=== PATIENT | female | born 1970 | race Caucasian/White ===

== ENCOUNTER 2016-03-19 03:20 | Emergency (ER) | payer OTHER ==
[~2016-03-19] VITALS: Ht 170.2 cm; Wt 90.7 kg
[~2016-03-19 03:20] MED LIST: CYCLOBENZAPRINE10 M1 PO; MEDROL4 M2 PO; NORCO 5-325 TA1 EACH PO
--- NOTE | 2016-03-19 03:25 | ED GI/GU/ABDOMINAL COMPLAINT ---
History of Present Illness General Chief Complaint: Abdominal Pain/Flank Pain Stated Complaint: "HORRIBLE PAIN" LEFT SIDE ABDOMINAL PAIN Source: patient Exam Limitations: no limitations Vital Signs & Intake/Output Vital Signs & Intake/Output Vital Signs Date Time Temp Pulse Resp B/P Pulse O2 O2 Flow FiO2 Ox Delivery Rate 03/19 0459 98.3 75 18 117/64 96 Room Air 03/19 0329 100.0 82 20 126/57 99 Room Air Allergies Coded Allergies: Penicillins (Intermediate, SWELLING 10/12/15) Sulfa (Sulfonamide Antibiotics) (Intermediate, SWELLING 10/12/15) Reconcile Medications Cyclobenzaprine HCl 10 MG TABLET 1 TAB PO BID PAIN Fexofenadine HCl (Sera Allergy) 180 MG TABLET 1 TAB PO DAILY ALLERGIES ( Reported) Hydrocodone/Acetaminophen ([place] 5-325 Tablet) 1 EACH TABLET 1 TAB PO Q4-6 PRN PRN BREAKTHROUGH PAIN Methylprednisolone. (Medrol) 4 MG TAB.DS.PK 1 DP PO AD back pain 6 on day 1 then reduce by one tablet daily until gone Triage Nurses Notes Reviewed? yes ? n Is pt currently ? No Duration: hour(s):, waxing and waning Timing: recent history Quality/Severity: cramping Location: left lower quadrant Radiation: no radiation Activities at Onset: none Prior Abdominal Problems: similar symptoms Modifying Factors: Worsens With: urinating. Associated Symptoms: abdominal pain, nausea/vomiting HPI: 45 yo woman h/o gastric sleeve, cholecystectomy, hysterectomy, appendectomy, presents with left lower quadrant abdominal pain x 2 hours. "I woke up, felt a little nauseous, felt like I had to go to the bathroom (both urinate and defecate)." Past History Travel History Traveled to [place] past 21 day No Medical History Any Pertinent Medical History? see below for history Neurological: NONE EENT: NONE Cardiovascular: NONE Respiratory: NONE Gastrointestinal: NONE Hepatic: cholelithiasis Renal: nephrolithiasis Musculoskeletal: NONE Psychiatric: NONE Endocrine: NONE Blood Disorders: NONE Cancer(s): NONE ACADEMIC DIRECTOR/Reproductive: NONE Surgical History Surgical History: appendectomy, cholecystectomy, hysterectomy Psychosocial History What is your primary language [place] Family History Hx Contributory? No Review of Systems Review of Systems Constitutional: Reports: no symptoms. EENTM: Reports: no symptoms. Respiratory: Reports: no symptoms. Cardiovascular: Reports: no symptoms. GI: Reports: no symptoms. Genitourinary: Reports: no symptoms. Musculoskeletal: Reports: no symptoms. Skin: Reports: no symptoms. Neurological/Psychological: Reports: no symptoms. Hematologic/Endocrine: Reports: no symptoms. Immunologic/Allergic: Reports: no symptoms. All Other Systems: Reviewed and Negative Physical Exam Physical Exam General Appearance: well developed/nourished, mild distress Head: atraumatic, normal appearance Eyes: Bilateral: normal appearance. Ears, Nose, Throat, Mouth: hearing grossly normal Neck: normal inspection, supple, full range of motion, normal alignment, abnormal alignment Respiratory: normal breath sounds, chest non-tender, no respiratory distress, quiet respiration, lungs clear Cardiovascular: regular rate/rhythm Gastrointestinal: normal bowel sounds, soft, mild suprapubic, left lower quadrant tenderness to palpation. Extremities: normal range of motion Neurologic/Psych: no motor/sensory deficits, awake, alert, oriented x 3 Core Measures ACS in differential dx? No Severe Sepsis Present: No Septic Shock Present: No Progress Differential Diagnosis: uti, kidney stones, diverticulitis vs other. Plan of Care: Orders Procedure Date/time Status URINALYSIS 03/19 342 Complete LIPASE 03/19 322 Complete HEPATIC FUNCTION PANEL 03/19 322 Complete HUMAN BETA HCG SCREEN 03/19 322 Complete CBC WITHOUT DIFFERENTIAL 03/19 322 Complete BASIC METABOLIC PANEL 03/19 322 Complete AMYLASE 03/19 322 Complete Laboratory Tests 03/19/16 0340: Urine Color YEL, Urine Clarity CLEAR, Urine pH 5.5, Ur Specific [place] >= 1.030 , Urine Protein NEG, Urine Ketones NEG, Urine Nitrite NEG, Urine Bilirubin NEG, Urine Urobilinogen 0.2, Ur Leukocyte Esterase NEG, Ur Microscopic SEDIMENT EXAMINED, Urine RBC 3-5, Urine WBC RARE, Ur Epithelial Cells MOD H, Urine Mucus FEW, Urine Hemoglobin SMALL H, Urine Glucose NEG 03/19/16 0335: Anion Gap 14, Estimated GFR > 60, BUN/Creatinine Ratio 22.9, Glucose 104 H, Calcium 9.5, Total Bilirubin 0.7, Direct Bilirubin 0.3, AST 28, ALT 41, Alkaline Phosphatase 85, Total Protein 7.4, Albumin 4.2, Amylase 47, Lipase 184, Total Beta HCG NEGATIVE, CBC w Diff NO MAN DIFF REQ, RBC 4.61, MCV 91.0, MCH 30.8, RDW 13.0, MPV 8.4, Gran % 57.3, Lymphocytes % 31.8, Monocytes % 9.0, Eosinophils % 1.5, Basophils % 0.4, Absolute Granulocytes 5.4, Absolute Lymphocytes 3.0, Absolute Monocytes 0.9 H, Absolute Eosinophils 0.1, Absolute Basophils 0, PUBS MCHC 33.8 Diagnostic Imaging: Viewed by Me: CT Scan. Discussed w/RAD: CT Scan. Radiology Impression: abd/pelvis... recently passed kidney stone. Initial ED EKG: none Comments: PATIENT: WILFRIDO MOREL PRESENT AGE: 45 PATIENT ACCOUNT NO: [id number] : 69 LOCATION: ER ORDERING PHYSICIAN: NED HAMILTON MD SERVICE DATE: 03/19/16 EXAM TYPE: CAT - CT ABD & PELVIS W/O IV CONTRAS EXAMINATION: CT ABDOMEN AND PELVIS WITHOUT CONTRAST CLINICAL INFORMATION: Left lower quadrant pain. Question kidney stone versus diverticulitis. COMPARISON: None. TECHNIQUE: Multidetector volumetric imaging was performed from the superior aspect of the liver through the pubic symphysis. Sagittal and coronal reformatted images were obtained on the technologist's workstation. DLP: 997 mGy-cm. FINDINGS: LUNG BASES: The visualized lung bases are unremarkable. LIVER, GALLBLADDER, AND BILIARY TREE: The liver is normal in size, shape, and attenuation. No focal hepatic lesion or biliary ductal dilatation is present. Status post cholecystectomy. PANCREAS: Unremarkable. SPLEEN: Unremarkable. ADRENAL GLANDS: Unremarkable. KIDNEYS AND URETERS: The kidneys are normal in size, shape, and attenuation. Mild fullness of the left collecting system. The ureter is normal in caliber. No right-sided hydronephrosis. No renal or ureteral calculi. No perinephric stranding. BLADDER: While there are multiple phleboliths seen in the pelvis, there is a central 0.3 cm calcification which appears to be layering within the bladder lumen. GASTROINTESTINAL TRACT: Status post gastric sleeve. The small bowel is unremarkable. No obstruction. Fecalization of the distal ileum suggests slow transit. No colonic wall thickening or inflammatory change. No significant diverticulosis. No free air or free fluid. ABDOMINAL WALL: No significant hernia is appreciated. LYMPH NODES: There is a "shaggy mesentery "with mildly prominent central lymph nodes noted. No retroperitoneal lymphadenopathy. VASCULAR: Unremarkable. PELVIC VISCERA: The uterus is not seen. No adnexal mass. Multiple phleboliths are seen in the pelvis. OSSEOUS STRUCTURES: No acute or suspicious osseous abnormalities. Multilevel degenerative changes are seen throughout the spine with endplate osteophyte formation. IMPRESSION: Mild fullness of the left collecting system with no renal or ureteral calculi seen. While there are multiple phleboliths in the pelvis, a small calcification appears to be layering within the bladder lumen, suggesting a recently passed stone. Nonspecific "shaggy mesentery ". DICTATED BY: SAHIL WRAY MD DATE/TIME DICTATED:03/19/16419 RADIO INTERFERENCE TROUBLE SHOOTER:CALEB DATE/TIME TRANSCRIBED:03/19/16419 CONFIDENTIAL, DO NOT COPY WITHOUT APPROPRIATE AUTHORIZATION. <Electronically signed in Other Vendor System> SIGNED BY: SAHIL WRAY MD 03/19 0434 Departure Departure Disposition: HOME OR SELF CARE Condition: Stable Clinical Impression Primary Impression: Abdominal pain Referrals: JUSTO CASTILLO,JAYJAY Florian (PCP/Family) Departure Forms: Customer Survey General Discharge Information Comments 03/19/16, 5:13am... discussed at length with patient... she is feeling better... ct scan consistent with recently passed kidney stone into the bladder.
[2016-03-19] MEDS ORDERED: ALLEGRA ALLERG180 M1 PO (03:31)
[2016-03-19 03:49] LABS: ABSOLUTE BASOPHIL COUNT 0 /CUMM (0.0-0.2); ABSOLUTE EOSINOPHIL COUNT 0.1 /CUMM (0.0-0.7); ABSOLUTE GRANULOCYTE CT 5.4 /CUMM (1.4-6.5); ABSOLUTE MONOCYTE COUNT 0.9 /CUMM (0.10-0.60); BASOPHIL % 0.4 % (0.0-2.0); EOSINOPHIL % 1.5 % (0-5); GRANULOCYTE % 57.3 % (42.2-75.2); HEMATOCRIT 41.9 % (37-47); MEAN CORPUSCULAR HGB 30.8 PG (27.0-31.0); MEAN CORPUSCULAR HGB CONC 33.8 G/DL (33.0-37.0); MEAN PLATELET VOLUME 8.4 FL (7.4-10.4); PLATELET COUNT 245 /CUMM (130-400); RED BLOOD CELL CT 4.61 /CUMM (4.20-5.40); WHITE BLOOD CELL COUNT 9.5 /CUMM (4.8-10.8)
--- NOTE | 2016-03-19 04:34 | CT SCAN REPORT ---
EXAMINATION: CT ABDOMEN AND PELVIS WITHOUT CONTRAST CLINICAL INFORMATION: Left lower quadrant pain. Question kidney stone versus diverticulitis. COMPARISON: None. TECHNIQUE: Multidetector volumetric imaging was performed from the superior aspect of the liver through the pubic symphysis. Sagittal and coronal reformatted images were obtained on the technologist's workstation. DLP: 997 mGy-cm. FINDINGS: LUNG BASES: The visualized lung bases are unremarkable. LIVER, GALLBLADDER, AND BILIARY TREE: The liver is normal in size, shape, and attenuation. No focal hepatic lesion or biliary ductal dilatation is present. Status post cholecystectomy. PANCREAS: Unremarkable. SPLEEN: Unremarkable. ADRENAL GLANDS: Unremarkable. KIDNEYS AND URETERS: The kidneys are normal in size, shape, and attenuation. Mild fullness of the left collecting system. The ureter is normal in caliber. No right-sided hydronephrosis. No renal or ureteral calculi. No perinephric stranding. BLADDER: While there are multiple phleboliths seen in the pelvis, there is a central 0.3 cm calcification which appears to be layering within the bladder lumen. GASTROINTESTINAL TRACT: Status post gastric sleeve. The small bowel is unremarkable. No obstruction. Fecalization of the distal ileum suggests slow transit. No colonic wall thickening or inflammatory change. No significant diverticulosis. No free air or free fluid. ABDOMINAL WALL: No significant hernia is appreciated. LYMPH NODES: There is a "shaggy mesentery "with mildly prominent central lymph nodes noted. No retroperitoneal lymphadenopathy. VASCULAR: Unremarkable. PELVIC VISCERA: The uterus is not seen. No adnexal mass. Multiple phleboliths are seen in the pelvis. OSSEOUS STRUCTURES: No acute or suspicious osseous abnormalities. Multilevel degenerative changes are seen throughout the spine with endplate osteophyte formation. IMPRESSION: Mild fullness of the left collecting system with no renal or ureteral calculi seen. While there are multiple phleboliths in the pelvis, a small calcification appears to be layering within the bladder lumen, suggesting a recently passed stone. Nonspecific "shaggy mesentery ".
[2016-03-19 04:59] VITALS: BP 117/64
== END 2016-03-19 04:59 ==
LOC: ERH 03:20
PROVIDERS: Pediatrics
DX: R10.32 Left lower quadrant pain (principal)
CPT/HCPCS: 74176; 81001